=== PATIENT | male | born 1980 | race Caucasian/White ===

== ENCOUNTER 2018-04-14 00:17 | Emergency (ER) | END 2018-04-14 04:24 | disposition home or self-care (01) ==

== ENCOUNTER 2018-05-27 23:01 | Emergency (ER) | END 2018-05-28 03:19 | disposition home or self-care (01) ==

== ENCOUNTER 2018-09-06 16:29 | Emergency (ER) | payer MEDICAID, OTHER ==
[~2018-09-06] VITALS: Ht 172.7 cm; Wt 78.0 kg
[~2018-09-06 16:29] MED LIST: CEPH-443 PO; IBUP-1542 PO; RANI150T35 PO
[2018-09-06 16:42] VITALS: Ht 172.7 cm; Wt 78.0 kg
[2018-09-06] MEDS ORDERED: KETOROLAC 60 MG INJ IM STA (20:05)
[2018-09-06] MEDS ORDERED: NAPR-985 PO (20:24)
[2018-09-06] MEDS ORDERED: DICL100G37 TOP (20:24)
[2018-09-06] MEDS ORDERED: CYCL10TA7 PO (20:24)
[2018-09-06 20:38] VITALS: BP 117/82; PULSE 59; RESP 18
--- NOTE | 2018-09-06 21:17 | ERD ---
ER Documentation Chief Complaint Chief Complaint RIGHT SIDED BACK PAIN TODAY HPI This is a 38-year-old male with a nonsignificant past medical history presents ED with right-sided low back pain times 1 day. Patient states that he was lifting heavy box today that was over 50 pounds and he started to experience right low back pain. Patient admits to some painful range of motion. Denies decreased range of motion, fever, chills, bowel/bladder incontinence, tingling, numbness, lack sensation, saddle paresthesias and all other symptoms. No history of IV drug abuse. ROS All systems reviewed and are negative except as per history of present illness. Medications Home Meds Active Scripts Cyclobenzaprine Hcl* (Cyclobenzaprine Hcl*) 10 Mg Tablet, 10 MG PO TID, #15 TAB Prov:ZHENG MERCADO PA-C 09/06/18 Diclofenac Sodium* (Voltaren* Gel) 1% -100 Gm Gel, 2 GM TOP QID, #1 TUB Prov:ZHENG MERCADO PA-C 09/06/18 Naproxen* (Naprosyn*) 500 Mg Tablet, 500 MG PO BID PRN for PAIN AND/OR INFLAMMATION, #30 TAB Prov:ZHENG MERCADO PA-C 09/06/18 Ibuprofen* (Motrin*) 600 Mg Tab, 600 MG PO Q6, #30 TAB Prov:JERICA CARROLL PA-C 05/28/18 Cephalexin* (Keflex*) 500 Mg Capsule, 500 MG PO QID for 5 Days, CAP Prov:JERICA CARROLL PA-C 05/28/18 Ranitidine Hcl* (Zantac*) 150 Mg Tablet, 150 MG PO BID PRN for EPIGASTRIC PAIN, #30 TAB Prov:MARIA DE JESUS GANDHI 04/14/18 Allergies Allergies: Coded Allergies: No Known Allergy (Unverified , 09/06/18) PMhx/Soc Medical and Surgical Hx: pt denies Medical Hx, pt denies Surgical Hx Hx Alcohol Use: No Hx Substance Use: No Hx Tobacco Use: No Smoking Status: Never smoker FmHx Family History: No diabetes Physical Exam Vitals Vital Signs Date Temp Pulse Resp B/P (MAP) Pulse Ox O2 O2 Flow FiO2 Time Delivery Rate 09/06/18 98.1 59 18 117/82 100 Room Air 20:38 (94) 09/06/18 99.0 78 18 121/68 96 16:42 (85) Physical Exam Const: No acute distress Head: Atraumatic Eyes: Normal Conjunctiva ENT: Normal External Ears, Nose and Mouth. Neck: Full range of motion. No meningismus. Resp: Clear to auscultation bilaterally Cardio: Regular rate and rhythm, no murmurs Back: No midline or flank tenderness, no thoracic or lumbar midline ten derness, there is mild tenderness palpation along the paravertebral muscles in the right low back, no step-off deformities, no decreased range of motion with flexion, extension and left and right lateral rotation Ext: No cyanosis, or edema Neur: Awake and alert Psych: Normal Mood and Affect Results 24 hrs Current Medications Medications Dose Sig/Melva Start Time Status Last (Trade) Ordered Route PRN Stop Time Admin Dose Reason Admin Ketorolac 60 mg ONCE STAT 09/06/18 DC 09/06/18 Tromethamine IM 20:05 20:10 (Toradol) 09/06/18 20:06 Procedures/MDM ER COURSE: The patient was given Toradol The medication was well tolerated and the patient reports improvement in symptoms. The patient was stable throughout ED course. I kept the patient and/or family informed of laboratory and diagnostic imaging results throughout the emergency room course. The patient was promptly evaluated and a treatment plan was devised based on H&P and other data. This plan was discussed with the patient who agreed and had no further questions or concerns prior to discharge. MEDICAL DECISION MAKING: This is a 38-year male presents ED with right low back pain. Given mechanism of injury and location of back pain being along the paravertebral muscles this is likely a muscle strain or muscle related pain. History and physical examination other data not consistent with processing including cauda equina syndrome, cord compression, infiltrative etiology, infectious etiology, epidural abscess, fracture, obstructive pyelonephritis, abdominal aortic aneurysm. Vitals are stable and patient can be managed outpatient with close follow-up. Advised patient to follow up with primary care in the next 48 hours. return to ED with any worsening symptoms DISPOSITION PLAN: We discussed follow up with the patient's primary care doctor within 24 to 48 hours. Patient counseled regarding my diagnostic impression and care plan. Prior to discharge all questions answered. Pt agrees with treatment plan and understands strict return precautions. Precautionary instructions provided including instructions to return to the ER if not improving or for any worsening or changing symptoms or concerns. SPECIALIST FOLLOW UP RECOMMENDED: None Patient has been advised to follow up with primary care in 1-2 days. Disclaimer: Inadvertent spelling and grammatical errors are likely due to EHR/dictation software use and do not reflect on the overall quality of patient care. Also, please note that the electronic time recorded on this note does not necessarily reflect the actual time of the patient encounter. Departure Diagnosis: Primary Impression: Back pain Back pain location: low back pain Chronicity: acute Back pain laterality: right Sciatica presence: without sciatica Qualified Codes: M54.5 - Low back pain Condition: Stable Patient Instructions: Back Pain (Acute Or Chronic) [facility] Usted se vega hecho un examen mdico de control que le indica que no est en tony condicin que requiera tratamiento urgente en el Departamento de Emergencia. Un estudio ms profundo y el tratamiento de lynch condicin pueden esperar sin ningn riesgo hasta que usted sea atendida/o en el consultorio de lynch mdico o tony clnica. Es responsabilidad suya arreglar tony zaire para el seguimiento del kwadwo. MANEJO DE CONDICIONES NO URGENTES EN EL FUTURO 1) Si usted tiene un mdico de atencin primaria: Usted debera llamar a lynch mdico de atencin primaria antes de venir al departamento de emergencia. Despus de las horas de consultorio, lynch doctor o lynch asociado/a est disponible por telfono. El mdico o enfermero de lucita en el servicio telefnico puede asesorarle por vania medio para atender el problema, o kwadwo contrario se puede programar tony zaire. 2) Si usted no tiene un mdico de atencin primaria: Llame al mdico o clnica de referencia que aparece abajo kaiden las horas de consultorio para hacer tony zaire para que le vean. CLINICAS: [facility] [phone] [address] [facility] [phone] [facility] [phone] [place] [id number] [phone] [facility] [phone] [address] [facility]. [phone] [address] Additional Instructions: Paciente aconseja volver a Departamento de urgencias inmediatamente para s ntomas nuevos o que empeoran . Paciente aconseja posteriores con el PCP en 1-2 georges . Paciente verbaliza la comprehensin y est de acuerdo con el tratamiento y el curso de accin. Si el paciente no tiene ninguna de atencin primaria pueden seguir con [facility] [id number] [place] [address] o LAC + [address] [address] ZHENG MERCADO PA-C Sep 06, 2018 21:17
== END 2018-09-06 20:40 | disposition home or self-care (01) ==
LOC: FTE 16:29
DX: M54.5 Low back pain (principal)
CPT/HCPCS: 96372; 99284; J1885